=== PATIENT | female | born 1960 | race Native Hawaiian/Other Pacific Islander ===

== ENCOUNTER 2020-08-12 10:18 | Outpatient (CLI) | payer OTHER | END 2020-08-12 19:25 | disposition home or self-care (01) | LOC: RAD 10:18 | PROVIDERS: ATTEND Nurse Practitioner Family | DX: M06.4 Inflammatory polyarthropathy (principal); M17.0 Bilateral primary osteoarthritis of knee; M19.041 Primary osteoarthritis, right hand; M19.042 Primary osteoarthritis, left hand ==

== ENCOUNTER 2021-07-19 10:34 | Outpatient (CLI) | payer BC | END 2021-07-19 19:11 | disposition home or self-care (01) | LOC: MAMMO 10:34 | PROVIDERS: ATTEND Internal Medicine | DX: Z12.31 Encounter for screening mammogram for malignant neoplasm of breast (principal) ==

== ENCOUNTER 2022-07-24 13:34 | Outpatient (CLI) | payer OTHER | END 2022-07-24 19:04 | disposition home or self-care (01) | LOC: MAMMO 13:34 | PROVIDERS: ATTEND Registered Nurse | DX: Z12.31 Encounter for screening mammogram for malignant neoplasm of breast (principal) ==